=== PATIENT | female | born 1990 | race Hispanic/Latino ===

== ENCOUNTER 2020-01-30 | Outpatient (CLI) | payer OTHER | END 2020-01-30 08:41 | disposition home or self-care (01) | DX: Z34.82 Encounter for supervision of other normal pregnancy, second trimester (principal); Z3A.23 23 weeks gestation of pregnancy ==

== ENCOUNTER 2020-05-10 09:28 | Inpatient (IN) | payer OTHER ==
[2020-05-10 10:19] VITALS: BMI 34.2
[2020-05-10] MEDS ORDERED: Penicillin G Potassium 5 MILL.UNITS VIAL ONE (10:26)
[2020-05-10] MEDS ORDERED: Promethazine HCl 25 MG/ML VIAL IM PRN ×3 (10:35→17:44)
[2020-05-10] MEDS ORDERED: Lidocaine 1% (PF) 30 ML VIAL SC PRN (10:35)
[2020-05-10] MEDS ORDERED: Ibuprofen 800 MG TAB PO PRN (10:35)
[2020-05-10] MEDS ORDERED: Diphenoxylate HCl/Atropine Tablet PO PRN (10:35)
[2020-05-10] MEDS ORDERED: Misoprostol 200 MCG TAB PR PRN (10:35)
[2020-05-10] MEDS ORDERED: Carboprost 250 MCG/ML AMP IM PRN (10:35)
[2020-05-10] MEDS ORDERED: NS / Oxytocin 40 units/1000ml 1,000 ML IV PRN (10:35)
[2020-05-10] MEDS ORDERED: HYDROcodone/Acetaminophen 5/325 mg Tablet PO PRN ×3 (10:35→17:44)
[2020-05-10] MEDS ORDERED: Ondansetron PF 4 MG/2 ML Vial IVP PRN ×3 (10:35→17:44)
[2020-05-10] MEDS ORDERED: hydrALAZINE 20 MG/ML VIAL SLOW IVP PRN ×2 (10:35→17:44)
[2020-05-10] MEDS ORDERED: Butorphanol Tartrate 1 MG/ML VIAL SLOW IVP PRN (10:35)
[2020-05-10] MEDS ORDERED: Methylergonovine 0.2 MG/ML VIAL IM PRN (10:35)
[2020-05-10] MEDS: Lactated Ringer's 1,000 ML IV SCH ×2 (10:35→16:14)
[2020-05-10] MEDS ORDERED: Penicillin G Potassium 5 MILL.UNITS in Sodium Chloride 0.9% 100 ML IVPB SCH (10:45)
[2020-05-10] MEDS ORDERED: NS w/ Oxytocin 10 units 500 ML IV SCH ×2 (10:45)
[2020-05-10 10:52] LABS: Hemoglobin 11.5 g/dL (12.0-16.0); Mean Corpuscular HGB CONC 31.1 g/dL (32.0-36.0); Mean Corpuscular Hemoglobin 23.9 pg (27.0-31.0); Mean Corpuscular Volume 76.6 fL (78.0-98.0); Mean Platelet Volume 11.1 fL (7.4-10.4); Platelet Count 156 thou/uL (130-400); RBC Distribution Width 16.3 % (11.5-14.5); Red Blood Cell (RBC) Count 4.83 mill/uL (4.20-5.40); White Blood Cell (WBC) Count 8.2 thou/uL (4.8-10.8)
[2020-05-10] MEDS ORDERED: Lidocaine 1% (PF) 30 ML VIAL ONE (10:57)
[2020-05-10] MEDS ORDERED: NS / Oxytocin 40 units/1000ml 1,000 ML ONE (10:57)
[2020-05-10 11:28] LABS: ALT (SGPT) 71 U/L (8-55); AST (SGOT) 102 U/L (5-34); Albumin 2.9 g/dL (3.5-5.0); Alkaline Phosphatase 215 U/L (40-110); Anion Gap 15 mmol/L (10-20); BUN (Urea Nitrogen) 11 mg/dL (7.0-18.7); Bilirubin, Total 0.4 mg/dL (0.2-1.2); Calc. Creatinine Clearance 186 mL/min (70-130); Calcium 8.1 mg/dL (7.8-10.44); Carbon Dioxide 17 mmol/L (22-29); Chloride 111 mmol/L (98-107); Estimated GFR-MDRD Greater than 90; Globulin 3.4 g/dL (2.4-3.5); Glucose 69 mg/dL (70-105); Potassium 4.4 mmol/L (3.5-5.1); Protein, Total 6.3 g/dL (6.0-8.3); Sodium 139 mmol/L (136-145)
[2020-05-10 11:41] LABS: HBSAg Index 0.15 S/CO (0-0.99); Hep B Surf Ag Non-Reactive S/CO (NonReactive)
[2020-05-10 11:43] LABS: Syphilis Antibody Nonreactive (Nonreactive); Syphilis Antibody Index 0.04 S/CO (<1.00 Non-Reactive)
[2020-05-10] MEDS ORDERED: Fentanyl 4 mcg/Bup 0.1% Cadd 100 ML ONE (13:38)
[2020-05-10] MEDS ORDERED: Naloxone HCl 0.4 mg/ml Vial IVP PRN ×2 (13:47)
[2020-05-10] MEDS ORDERED: diphenhydrAMINE 50 MG/ML VIAL IVP PRN (13:47)
[2020-05-10] MEDS ORDERED: Acetaminophen 325 MG TAB PO PRN (13:47)
[2020-05-10] MEDS ORDERED: Lactated Ringer's 500 ML IV PRN (13:47)
[2020-05-10] MEDS ORDERED: EPHEDRINE 25 MG/5 ML SYRINGE SLOW IVP PRN (13:47)
[2020-05-10] MEDS ORDERED: Bupivacaine 0.25% HCL 30 ML VIAL ONE (13:56)
[2020-05-10] MEDS ORDERED: Fentanyl 4 mcg/Bupivacaine 0.1% Cassette 100 ML EPIDURAL SCH (14:00)
[2020-05-10] MEDS ORDERED: Communication Order-Pharmacy FS SCH (14:00)
[2020-05-10] MEDS: Penicillin G 2.5 MILL.units 2.5 MILL.UNITS in Premix Bag 1 BAG IVPB SCH ×2 (14:33→16:10)
[2020-05-10 16:49] LABS: Creatinine, Urine 29.29 mg/dL (47-110); Protein, Urine Random Quant Less than 10 mg/dL (1-14)
[2020-05-10 17:09] LABS: SARS-CoV-2 MS2 Positive; SARS-CoV-2 N Gene Negative; SARS-CoV-2 S Gene Negative; SARS-CoV-2 by NAA Not Detected (NotDetected); SARS-CoV-2 orf1ab Negative
[2020-05-10] MEDS ORDERED: NS / Oxytocin 40 units/1000ml 1,000 ML IV SCH (17:44)
[2020-05-10] MEDS ORDERED: Benzocaine-Menthol 82.5 ML CAN TOP PRN (17:44)
[2020-05-10] MEDS ORDERED: Bisacodyl 10 MG SUPP PR PRN (17:44)
[2020-05-10] MEDS ORDERED: Milk Of Magnesia 30 ML UDCUP PO PRN (17:44)
[2020-05-10] MEDS ORDERED: Lanolin Ointment 7 GM TUBE TOP PRN (17:44)
[2020-05-10] MEDS ORDERED: diphenhydrAMINE 25 MG CAP PO PRN (17:44)
[2020-05-10] MEDS: Ibuprofen 800 MG TAB PO SCH (19:01)
[2020-05-11] MEDS: Ibuprofen 800 MG TAB PO SCH ×3 (06:36→21:56)
[2020-05-11] MEDS: Ferrous Sulfate 325 MG TAB PO SCH ×2 (08:54→17:24)
[2020-05-11] MEDS ORDERED: Adacel (T-DAP) 0.5 ML SYRINGE IM ONE (09:00)
[2020-05-11] MEDS: Docusate Calcium (SURFAK) 240 MG CAP PO SCH ×3 (10:16→21:57)
[2020-05-12] MEDS: Ibuprofen 800 MG TAB PO SCH ×2 (06:23→14:44)
[2020-05-12] MEDS: Ferrous Sulfate 325 MG TAB PO SCH ×2 (07:35→16:02)
[2020-05-12 08:18] VITALS: TEMP 97.8
[2020-05-12 09:08] VITALS: BP 140/74
[2020-05-12] MEDS: Docusate Calcium (SURFAK) 240 MG CAP PO SCH (10:23)
== END 2020-05-12 18:00 | disposition home or self-care (01) | DRG 807 ==
LOC: L&D/OP 09:28 → L&D 09:34 → L&D-LIB 09:48 → 3SW 21:08
PROVIDERS: ADMIT Family Medicine; ATTEND Family Medicine
PROC: 10E0XZZ Delivery of Products of Conception, External Approach (ICD-10-PCS; principal; 2020-05-10)
PROC: 10907ZC Drainage of Amniotic Fluid, Therapeutic from Products of Conception, Via Natural or Artificial Opening (ICD-10-PCS; 2020-05-10)
PROC: 3E033VJ Introduction of Other Hormone into Peripheral Vein, Percutaneous Approach (ICD-10-PCS; 2020-05-10)
PROC: 0HQ9XZZ Repair Perineum Skin, External Approach (ICD-10-PCS; 2020-05-10)
DX: O99.824 Streptococcus B carrier state complicating childbirth (principal); O24.429 Gestational diabetes mellitus in childbirth, unspecified control; Z37.0 Single live birth; Z3A.38 38 weeks gestation of pregnancy; O76 Abnormality in fetal heart rate and rhythm complicating labor and delivery; O99.214 Obesity complicating childbirth; E66.9 Obesity, unspecified; O70.0 First degree perineal laceration during delivery
CPT/HCPCS: 36415; 51702; 80053; 82570; 84156; 85027; 86780; 86850; 86900; 86901; 87340; 87635; 90715; J2001; J2540; J2590; J3490; S0020; U0003